=== PATIENT | female | born 1955 | race Caucasian/White ===

== ENCOUNTER 2023-06-17 17:30 | Emergency (ER) | payer MEDICARE, SELFPAY ==
--- NOTE | 2023-06-17 17:34 | ED.GENADULT ---
HPI - General Adult General Chief complaint: Upper Respiratory Infection Stated complaint: elevated bp and blood sugar level Time Seen by Provider: 06/17/23 17:34 Source: patient Mode of arrival: ambulatory Limitations: no limitations History of Present Illness HPI narrative: Idalia is a 68-year-old female patient presenting to the clinic today with complaints of elevated blood pressure and elevated blood sugar level. She reports she also feels dizzy, nauseated, and fatigue. Symptoms started yesterday. She denies any fever but states she had some chills. Has not eaten today. States that her PCP told her to come in to be evaluated as she likely has something infectious going on. Had exposure to COVID 1 week ago. States that she took an at-home COVID test today and was negative however the test was old. Related Data Home Medications Medication Instructions Recorded Confirmed furosemide 40 mg tablet 80 mg PO DAILY 06/17/23 06/17/23 glipizide 10 mg tablet 10 mg PO BID 06/17/23 06/17/23 hydroxyzine HCl 25 mg tablet 25 mg PO TID PRN Insomnia 06/17/23 06/17/23 insulin glargine 100 unit/mL (3 35 unit subcut DAILY 06/17/23 06/17/23 mL) subcutaneous pen (Basaglar KwikPen U-100 Insulin) levothyroxine 50 mcg tablet 50 mcg PO DAILY 06/17/23 06/17/23 pioglitazone 15 mg tablet 15 mg PO DAILY 06/17/23 06/17/23 propranolol 160 mg capsule,24 60 mg PO DAILY 06/17/23 06/17/23 hr,extended release semaglutide 1 mg/dose (4 mg/3 mL) 1 mg subcut WEEKLY 06/17/23 06/17/23 subcutaneous pen injector (Ozempic) sitagliptin phosphate 100 mg 100 mg PO DAILY 06/17/23 06/17/23 tablet (Januvia) spironolactone 50 mg tablet 50 mg PO DAILY 06/17/23 06/17/23 zolpidem 5 mg tablet 5 mg PO HS 06/17/23 06/17/23 Allergies Allergy/AdvReac Type Severity Reaction Status Date / Time amoxicillin AdvReac Mild Hives Verified 06/17/23 18:00 Review of Systems Review of Systems: Pertinent positives per HPI. Patient denies any fever, rash, headache, visual changes, cough, sore throat, shortness of breath, chest pain, palpitations, nausea, vomiting, diarrhea, constipation, abdominal pain, or any urinary issues. [facility] Family History Family History Sibling Diabetes mellitus Hypertension Patient's sister is in good health Mother Family history of pancreatic cancer Father Family history of lung cancer Social History Social History Smoking status: Never smoker Alcohol intake: never Comments At the time of my signature, I reviewed and agree with the nursing past medical, surgical, social, and family history. There is no relevant family history pertinent to the patient complaint. Exam Narrative: General: Well-developed, overweight, in no apparent distress Head: Normocephalic, atraumatic Eyes: Pupils equally round and reactive to light bilaterally, EOM intact, sclera and conjunctive clear, no discharge, lids normal, no nystagmus Ears: TMs intact and clear, ear canals clear, no drainage, grossly hearing normal. Nose: Nares patent, clear nasal discharge, no inflammation, no sinus tenderness. Mouth: Oropharynx without lesions or masses, good dentition, MMM. Tongue midline, even rise and fall of uvula Neck: Supple, trachea midline, no enlargement of anterior or posterior cervical nodes, no thyroid masses or goiter palpable. Cardio: Regular rate and rhythm, s1 and s2 normal, no murmur appreciated. Resp: Clear to auscultation bilaterally anteriorly and posteriorly, no rhonchi, rales, wheezing or rubs Musculoskeletal: No deformity, non-tender to palpation, grossly normal range of motion, muscle strength strong and equal, peripheral pulse strong, no edema, no cyanosis, normal gait and station Neuro: Alert and oriented x4 with normal speech, no focal deficits, essential tremors noted, cranial nerves I through XII intact, muscle s
[2023-06-17 17:48] VITALS: BP 142/79; PULSE 94; RESP 18; TEMP 36.4; O2SAT 100
--- NOTE | 2023-06-17 18:01 | ECG_ITS ---
Measurements Intervals Kimberly Rate: 90 P: 44 AL: 152 QRS: -4 QRSD: 95 T: 24 QT: 391 QTc: 480 Interpretive Statements SINUS RHYTHM NO PREVIOUS ECG AVAILABLE FOR COMPARISON Electronically Signed On 06-17-2023 20:24:30 [employer] by Marcia Ty M.D.
[2023-06-17 18:02] LABS: Glucose Point of Care 135 mg/dl (65-105)
== END 2023-06-17 18:39 | disposition home or self-care (01) ==
PROVIDERS: Emergency Provider Nurse Practitioner Family
DX: R42 Dizziness and giddiness (principal); R11.0 Nausea; B34.9 Viral infection, unspecified; Z20.822 Contact with and (suspected) exposure to COVID-19; E78.00 Pure hypercholesterolemia, unspecified; I10 Essential (primary) hypertension; K74.60 Unspecified cirrhosis of liver; K76.0 Fatty (change of) liver, not elsewhere classified; M19.90 Unspecified osteoarthritis, unspecified site; E11.9 Type 2 diabetes mellitus without complications; F41.9 Anxiety disorder, unspecified; Z79.4 Long term (current) use of insulin; Z79.84 Long term (current) use of oral hypoglycemic drugs
CPT/HCPCS: 81003; 82948; 87081; 87426; 87804; 87880; 93005; 99213; C9803; G0463